=== PATIENT | male | born 1975 | race Caucasian/White ===

== ENCOUNTER → 2021-10-22 17:24 | Outpatient (CLI) | payer OTHER, MEDICAID, SELFPAY ==
--- NOTE | 2021-10-22 17:28 | DI.RAD.S_ITS ---
PROCEDURE: XR LUMBAR SPINE 2-3V INDICATIONS: acute lift injury, disc herniation hx, LBP TECHNIQUE: 3 views of the lumbar spine were acquired. COMPARISON: None. FINDINGS: Bones: 5 miu-bzl-cvpqhly vertebrae are present. There is straightening of normal lumbar lordosis. Mild degenerative endplate changes are noted at L3-4 through L5-S1 levels. No vertebral body compression fractures. No suspicious bony lesions. Soft tissues: Overlying bowel gas pattern is normal. No suspicious soft tissue calcifications. IMPRESSION: No acute compression fracture or spondylolisthesis in lumbar spine. Mild degenerative disc disease at L3-4 through L5-S1 levels. Dictated by: Lucian Cheung M.D. on 10/22/2021 at 17:40 Approved by: Lucian Cheung M.D. on 10/22/2021 at 17:41
== END ==
PROVIDERS: Family Provider Family Medicine; Referring Provider Student in an Organized Health Care Education/Training Program; Visit Provider Student in an Organized Health Care Education/Training Program
DX: M51.36 Other intervertebral disc degeneration, lumbar region (principal); M51.37 Other intervertebral disc degeneration, lumbosacral region; M54.50 Low back pain, unspecified; G89.11 Acute pain due to trauma
CPT/HCPCS: 72100

== ENCOUNTER → 2022-12-13 16:38 | Outpatient (CLI) | payer OTHER, SELFPAY ==
[2022-12-13 17:44] LABS: Alanine Aminotransferase 35 IU/L (<50); Albumin 4.4 g/dL (3.5-5.0); Albumin Globulin Ratio 1.4 (1.0-2.8); Alkaline Phosphatase 46 U/L (38-126); Aspartate Aminotransferase 28 IU/L (17-59); BUN Creatinine Ratio 12.8 (6-22); Bilirubin Total 1.3 mg/dL (0.2-1.3); Blood Urea Nitrogen 12 mg/dL (9-20); Calcium 9.2 mg/dL (8.4-10.2); Carbon Dioxide 29 mmol/L (22-32); Chloride 103 mmol/L (98-107); Cholesterol 158 mg/dL (140-199); Estimated Glomerular Filt Rate > 60 mL/min (>60); Globulin 3.2 g/dL (1.7-4.1); Glucose 91 mg/dL (70-100); HDL Cholesterol 41 mg/dL (40-60); HEMOLYSIS < 15 (0-50); LDL Cholesterol Calculated 83 mg/dL (<100); Potassium 4.2 mmol/L (3.4-5.1); Sodium 138 mmol/L (137-145); Total Protein 7.6 g/dL (6.3-8.2); Triglycerides 168 mg/dL (35-150)
[2022-12-13 18:15] LABS: Prostate Specific Antigen 0.405 ng/mL (0.10-4.00)
[2022-12-13 18:33] LABS: HIV 1 & 2 Ab/Ag 4th Gen Combo NEGATIVE (NEGATIVE); Hep C Virus Ab w/Reflex Quant NEGATIVE s/c (NEGATIVE)
== END ==
PROVIDERS: Family Provider Family Medicine; PCP Family Medicine; Referring Provider Family Medicine; Visit Provider Family Medicine
DX: E78.5 Hyperlipidemia, unspecified (principal); Z11.3 Encounter for screening for infections with a predominantly sexual mode of transmission; Z12.5 Encounter for screening for malignant neoplasm of prostate; Z00.00 Encounter for general adult medical examination without abnormal findings
CPT/HCPCS: 36415; 80053; 80061; 84153; 86803; 87389

== ENCOUNTER → 2023-12-01 16:47 | Outpatient (CLI) | payer OTHER, SELFPAY | PROVIDERS: PCP Family Medicine; Visit Provider Nurse Practitioner Family | DX: R07.0 Pain in throat (principal) | CPT/HCPCS: 87070 ==

== ENCOUNTER → 2023-12-19 16:05 | Outpatient (CLI) | payer OTHER, SELFPAY ==
[2023-12-19 17:42] LABS: HEMOLYSIS 22 (0-50)
[2023-12-19 17:48] LABS: Alanine Aminotransferase 30 IU/L (<50); Albumin 4.1 g/dL (3.5-5.0); Albumin Globulin Ratio 1.4 (1.0-2.8); Alkaline Phosphatase 46 U/L (38-126); Aspartate Aminotransferase 28 IU/L (17-59); BUN Creatinine Ratio 10.8 (6-22); Bilirubin Total 1.3 mg/dL (0.2-1.3); Blood Urea Nitrogen 9 mg/dL (9-20); Carbon Dioxide 28 mmol/L (22-32); Chloride 103 mmol/L (98-107); Cholesterol 142 mg/dL (140-199); Estimated Glomerular Filt Rate > 60 mL/min (>60); Glucose 103 mg/dL (70-100); HDL Cholesterol 43 mg/dL (40-60); LDL Cholesterol Calculated 69 mg/dL (<100); Sodium 136 mmol/L (137-145); Total Protein 7.1 g/dL (6.3-8.2); Triglycerides 151 mg/dL (35-150)
[2023-12-19 19:19] LABS: Prostate Specific Antigen Scrn 0.427 ng/mL (0.1-4.0)
== END ==
LOC: LAB 16:07
PROVIDERS: PCP Family Medicine; Referring Provider Family Medicine; Visit Provider Family Medicine
DX: Z00.00 Encounter for general adult medical examination without abnormal findings (principal); Z12.5 Encounter for screening for malignant neoplasm of prostate
CPT/HCPCS: 36415; 80053; 80061; G0103

== ENCOUNTER 2024-07-20 07:24 | Day surgery (SDC) | payer OTHER, SELFPAY ==
[2024-07-20] VITALS (7 sets, daily range): BP systolic 95–133; BP diastolic 54–85; PULSE 54–70; RESP 11–16; TEMP 36.1–36.3; O2SAT 98–100
--- NOTE | 2024-07-20 | PATH_ITS ---
[facility] Accession Number: [id number] No. of containers..01 Tissue . 01 Material submitted: . colon - TRANSVERSE COLON POLYP . 01 Diagnosis: TRANSVERSE COLON POLYP: Hyperplastic polyp. STO 07/24/20241830 Local . 01 Electronically signed: . Adam Mason MD, Pathologist NPI- [id number] . 01 Gross description: . TRANSVERSE COLON POLYP: Received in formalin is 1 fragment(s) of bhatia, soft tissue measuring 0.5 x 0.4 x 0.3 cm submitted entirely in 1 cassette(s) /JIN 07/24/20241830 Local . 01 Pathologist provided ICD-10: K63.5 . 01 CPT . 036163 Specimen Comment: A courtesy copy of this report has been sent to [facility]ology Performed at: [address] [facility] [id number] MD Adam Mason MD Phone: [phone]
[2024-07-20] MEDS: LACTATED RINGERS 1,000 ML 84 ML IV (07:51)
--- NOTE | 2024-07-20 08:05 | PM.HP.IH.1 ---
History of Present Illness History of Present Illness Date Patient Seen: 07/20/24 Time Patient Seen: 08:06 Chief complaint: SDC Narrative: 49-year-old white male, presents for initial screening colonoscopy, thinks his dad may have Crohn's disease but he has no personal symptoms of bleeding, mucus in his stools or abdominal pain. No family history of colon cancer PFSH Medical History Family history of prostate cancer Wears reading eyeglasses Shoulder pain (~2019) Fracture Ankle pain (~1987) History of herniated intervertebral disc Acute low back pain due to trauma Acute low back pain due to trauma Surgical History History of vasectomy (~2005) Family History Grandfather Heart disease Grandmother Breast cancer Sister Age: 39 Lymphoma Cancer Father Prostate cancer Skin cancer Asthma Family/Other Mental health problem Social History Smoking Status: Never smoker alcohol intake: current Meds Home Medications and Allergies Home Medications Medication Instructions Recorded Confirmed Type calcium acetate PO 12/13/22 12/19/23 History cholecalciferol (vitamin D3) PO 12/13/22 12/19/23 History multivitamin combination no.56 PO 12/13/22 12/19/23 History sodium,potassium,mag sulfates 17.5 See Rx Instructions PO .COMPLEX 06/28/24 Rx gram-3.13 gram-1.6 gram oral soln #354 mL (Suprep Bowel Prep Kit) Allergies Allergy/AdvReac Type Severity Reaction Status Date / Time venom-honey bee Allergy Intermediate SWELLING/RE Verified 07/20/24 07:38 [bee venom (honey bee)] DNESS/IRRIT ATION Review of Systems Review of Systems ROS: Yes All systems reviewed with the patient and are negative except as otherwise documented Exam Vital Signs (past 8 hours): - 07/20/24 07:40 Temperature 96.9 F L Pulse Rate 63 Respiratory Rate 16 Blood Pressure 133/79 Pulse Oximetry 98 Oxygen Delivery Method Room Air Oxygen Delivery Method Room Air Narrative Exam Narrative: Gen: NAD, sitting comfortably in bed, appears well HEENT: Sclera are anicteric, head is normocephalic and atraumatic, trachea is midline. CV: RRR, no JVD Resp: clear to auscultation bilaterally, equal chest wall movement bilaterally Abd: soft, nontender, normoactive bowel sounds Ext: no edema, full range of motion Neuro: Cranial nerves II-XII grossly intact, no focal deficits Skin: No erythema or ecchymosis Assessment & Plan Assessment and plan (1) Colon cancer screening: Status: Acute Assessment & Plan narrative: Patient presents for colonoscopy Risks, benefits, alternatives to colonoscopy explained, including but not limited to bowel perforation or other serious complication requiring surgery at less than 1 in 5000 colonoscopies, abdominal pain, cramping or bleeding and less than 1% of colonoscopies, and the chances that we find a diagnosis that would require further intervention of about 2%. Patient agrees to proceed. Time-Based Coding :: [TOTAL MINUTES] spent with patient and on the chart (including review of chart, obtaining history, exam, reviewing outside data, placing orders, documenting exam and treatment plan, and counseling patient) on [DATE]. [employer] Assistant Document charge(s): No
--- NOTE | 2024-07-20 08:29 | PM.OP.COLON ---
Operative Date/Time/Diagnoses Date of procedure: 07/20/24 Time of procedure: 08:29 Pre-op diagnosis: Colon screening Post-op diagnosis: same (Transverse colon polyp) Procedure & Clinicians Study performed: Colonoscopy with cold snare polypectomy transverse colon polyp Same procedure as scheduled: Yes Indications: Colon screening Surgeon: Wilfrido Ramirez Procedure Notes SCOAP/Timeout: Performed Procedure in detail: Time-out was performed. Mac was induced. Patient was placed in left lateral decubitus position. The perineum was inspected without any gross abnormality. Lubricated pediatric colonoscope was inserted and advanced to the cecum. The terminal ileum was intubated. The colonoscope was withdrawn slowly inspecting the circumference of the colon. Benign-appearing polyp was noted in the transverse colon, completely removed with cold snare polypectomy and retrieved. Very small polyps may have been missed, prep quality was adequate. Retroflexed view of the rectum showed small, non prolapsed nonbleeding internal hemorrhoids. The scope was withdrawn the patient was taken to PACU in good condition. Scope withdrawal time: 8 Findings: polyp(s) Specimen(s): other (Transverse polyp) Complications: none Impression: Benign-appearing polyp Post-procedure Recommendations: Other recommendation(s) (Next colonoscopy in 7 years) Follow up: as needed Disposition: PACU
== END 2024-07-20 09:25 | disposition home or self-care (01) ==
PROVIDERS: PCP Family Medicine; Referring Provider Surgery; Visit Provider Surgery
PROC: 0DJD8ZZ Inspection of Lower Intestinal Tract, Via Natural or Artificial Opening Endoscopic (ICD-10-PCS; CPT 45378; principal; 2024-07-20 08:30)
DX: Z12.11 Encounter for screening for malignant neoplasm of colon (principal); K64.8 Other hemorrhoids; K63.5 Polyp of colon
CPT/HCPCS: 45385; J2704